=== PATIENT | female | born 1980 | race Caucasian/White ===

== ENCOUNTER 2021-03-30 04:55 | Emergency (ER) | payer OTHER ==
[~2021-03-30] VITALS: Ht 175.3 cm; Wt 81.6 kg
[2021-03-30 05:03] VITALS: BP 152/81
[2021-03-30] MEDS ORDERED: BENADRYL PO ONE (05:04)
[2021-03-30] MEDS ORDERED: SOLU-MEDROL IM STA (05:04)
[2021-03-30] MEDS ORDERED: SOLU-MEDROL ONE (05:04)
[2021-03-30] MEDS ORDERED: BENADRYL PO STA (05:04)
[2021-03-30] MEDS ORDERED: WATER 20 ML ONE (05:05)
--- NOTE | 2021-03-30 05:08 | ER.PDOC ---
General Chief Complaint: Requesting Medical Care Stated Complaint: POSS BRIANG REACTION Time seen by MD: 05:00 Source: patient Exam Limitations: no limitations History of Present Illness Initial Comments 41-year-old female presents the ER complaining of left orbital swelling status post insect bite yesterday afternoon. Patient states she was outside gardening and cooking dinner which time she felt a pinching bite on her outer eyelid. Patient went to sleep and woke up just prior to arrival and notedSwelling of her left eyelid and began to feel that her throat was beginning to get tight. Patient has had previous reactions to insect bites in the past receiving medications in the emergency department and a prescription for an EpiPen. Other than the facial swelling and the possible throat tightness she denies any other acute symptoms. Denies fevers chills. She has not taken any other medications at home to treat this. Severity: mild Associated Symptoms: facial swelling Identified Cause: yes Exposure: other (Bug bite) Allergies: Coded Allergies: codeine (Verified Allergy, Unknown, 03/30/21) Constitutional: denies no symptoms reported, denies see HPI, denies chills, denies diaphoresis, denies fever, denies malaise, denies weakness, denies other EENTM: denies no symptoms reported, denies see HPI; eye pain; denies blurred vision, denies tearing, denies double vision, denies ear pain, denies ear discharge, denies nose pain, denies nose congestion, denies throat pain; throat swelling; denies mouth pain, denies mouth swelling, denies other Respiratory: denies no symptoms reported, denies see HPI, denies cough, denies orthopnea, denies shortness of breath, denies SOB with exertion, denies SOB at rest, denies stridor, denies wheezing, denies other Cardiovascular: denies no symptoms reported, denies see HPI, denies chest pain, denies edema, denies irregular heart rate, denies lightheadedness, denies palpitations, denies syncope, denies other Gastrointestinal: denies no symptoms reported, denies see HPI, denies abdomen distended, denies abdominal pain, denies blood streaked bowels, denies constipated, denies diarrhea, denies difficulty swallowing, denies nausea, denies poor appetite, denies poor fluid intake, denies rectal bleeding, denies vomiting, denies other Genitourinary: denies no symptoms reported, denies see HPI, denies burning, denies dysuria, denies discharge, denies frequency, denies flank pain, denies hematuria, denies incontinence, denies pain, denies urgency, denies other Musculoskeletal: denies no symptoms reported, denies see HPI, denies back pain, denies gout, denies joint pain, denies joint swelling, denies muscle pain, denies muscle stiffness, denies neck pain, denies other Skin: denies no symptoms reported, denies see HPI, denies change in color, denies change in hair/nails, denies dryness, denies lesions, denies lumps, denies rash, denies other Psychiatric/Neurological: denies no symptoms reported, denies see HPI, denies anxiety, denies depressed, denies emotional problems, denies headache, denies numbness, denies paresthesia, denies pre-existing deficit, denies seizure, denies tingling, denies tremors, denies weakness, denies other Endocrine: denies no symptoms reported, denies see HPI, denies excessive sweating, denies flushing, denies intolerance to cold, denies intolerance to heat, denies increased hunger, denies increased thrist, denies increased urine, denies unexplained weight gain, denies unexplaned weight loss, denies other Hematologic/Lymphatic: denies no symptoms reported, denies see HPI, denies anemia, denies blood clots, denies easy bleeding, denies easy bruising, denies swollen glands, denies other Physical Exam General Appearance: alert, no distress HEENT: voice nml, other (Left eyelid swelling) 1 - swelling Skin: no rash, nml color Extremities: non-tender, nml ROM Neck: nml inspection Respiratory: no resp. distress, breath sounds nml CVS: reg. rate & rhythm, heart sounds nml Abdomen: non-tender, no organomegaly NEURO/PSYCH: oriented x 3, CN's nml as tested Results/Orders Results/Orders Orders - KAMLA SHEN DO Methylprednisolone Sod Succ (Solu-Medrol (03/30/21 05:04) Diphenhydramine Hcl (Benadryl) (03/30/21 05:04) Progress Progress Patient given Solu-Medrol 125 IM and Benadryl 50 mg p.o. with subsequent improvement in her symptoms. ER DEPART Departure Time of Disposition: 05:45 Disposition: 01 HOME / SELF CARE / HOMELESS Impression: Primary Impression: Allergic reaction Additional Impression: Insect bite Condition: Improved Patient Instructions: Insect Sting Allergy Referrals: KAMLA BECKETT (PCP) PRIMARY CARE PROVIDER Comments RX: Medrol dosepack Duration or Time Spent with Pa: 20 Problem Qualifiers KAMLA SHEN DO Mar 30, 2021 05:08
[2021-03-30 05:35] VITALS: BP 128/71
== END 2021-03-30 05:39 | disposition home or self-care (01) ==
LOC: ER 04:55
DX: T78.40XA Allergy, unspecified, initial encounter (principal); S00.262A Insect bite (nonvenomous) of left eyelid and periocular area, initial encounter; Z88.5 Allergy status to narcotic agent; W57.XXXA Bitten or stung by nonvenomous insect and other nonvenomous arthropods, initial encounter; Y93.89 Activity, other specified; Y92.89 Other specified places as the place of occurrence of the external cause; Y99.8 Other external cause status
CPT/HCPCS: 96372; 99283; J2930; Q0163; A4216

== ENCOUNTER 2022-10-03 20:32 | Emergency (ER) | payer SELFPAY ==
[~2022-10-03] VITALS: Ht 175.3 cm; Wt 82.6 kg
[2022-10-03 21:12] VITALS: BP 161/72
--- NOTE | 2022-10-03 21:52 | ER.PDOC ---
General Chief Complaint: Dyspnea/Respdistress Stated Complaint: ASTHMA Time seen by MD: 21:52 Source: patient Exam Limitations: no limitations History of Present Illness Initial Comments Pt has had progressive shortness of breath and some nonspecific midsternal chest pain today. Indicates she was seen in clinic and had an EKG done and got a shot of steroids for asthma, but symptoms have persisted. VSS. Timing/Duration: 24 hours (perhaps as many as 2-3 days.) Severity: moderate Initiating Event: upper respiratory illness Associated Symptoms: shortness of breath, cough Prior symptoms/Treatment: Similar symptoms previous, Recenly Seen, Treated by Doctor Allergies: Coded Allergies: codeine (Verified Allergy, Unknown, 03/30/21) Past Medical History Medical History: asthma Surgical History: , tubal Family History Significant Family History: heart disease, hypertension Social History Smoking: non-smoker (since her mid 20s ) Alcohol Use: none Drug Use: none Reviewed Nursing Reviewed: Vital Signs, Abn. Noted, Nursing Assessment Constitutional: see HPI EENTM: no symptoms reported Respiratory: SOB with exertion, SOB at rest Cardiovascular: chest pain (highly atypical) Gastrointestinal: no symptoms reported Genitourinary: no symptoms reported Musculoskeletal: no symptoms reported Skin: no symptoms reported Psychiatric/Neurological: no symptoms reported Endocrine: no symptoms reported Hematologic/Lymphatic: no symptoms reported All Other Systems: Reviewed and Negative Physical Exam General Appearance: alert Respiratory: chest non-tender, lungs clear, normal breath sounds Cardiovascular: Normal Peripheral Pulses, Regular Rate, Rhythm Abdomen: non-tender Extremities: non-tender NEURO/PSYCH: oriented x 3, CN's nml as tested, motor nml, sensation nml Results/Orders Results/Orders Vital Signs Date Time Temp Pulse Resp B/P (MAP) Pulse Ox O2 Delivery O2 Flow Rate FiO2 10/03/22 21:12 97.8 95 20 161/72 (101) 100 Room Air* 0 21 10/03/22 21:12 97.8 95 20 10/03/22 21:12 97.8 95 20 100 Progress Progress Labs largely nondiagnostic, no evidence of asthma, and cardiac workup (not high suspicion anyway) nondiagnostic. Seems a developing pneumonia. We will treat with augmentin and I have recommended pt follow up as needed. EKG/XRAY/CT/US EKG: NSR (NSR appropriate T waves good RWP no ST elevations or depressions) XRAY: chest XRAY Comments: L lung findings c/w infiltrate/pneumonia ER DEPARTURE Departure Time of Disposition: 23:47 Disposition: 01 HOME / SELF CARE / HOMELESS Impression: Primary Impression: Pneumonia Condition: Stable Patient Instructions: Pneumonia, Adult, [id number] Referrals: ÁNGEL DRAKE PA-C (PCP) PRIMARY CARE PROVIDER Additional Instructions: Medications as directed. May return to work Friday. Return if symptoms worsen. Duration or Time Spent with Pa: 15 min Justification of Admit/Observ Is this patient coming directl: No *Level of Care/Services Provid: OTHER Admit Criteria Met: NO Justification Content JUSTIFICATION FOR ADMISSION Instructions 1. Open link in [email or web address] Browser. [email or web address] 2. Copy and paste data needed to meet the Admit Criteria. 3. Modify and document the needful data to meet the Admit Criteria. MARYSE TOVAR MD Oct 03, 2022 21:52
[2022-10-03 22:15] VITALS: BP 137/76
[2022-10-03 22:16] LABS: LYMPHOCYTES # 0.47 10^3/uL1 (1.0-4.8); LYMPHOCYTES % 6.5 % (24.0-44.0); MEAN CORP HGB 29.5 pg (26-34); MONOCYTES # 0.1 10^3/uL (0.3-0.8); MONOCYTES % 0.7 % (5.0-12.0); NEUTROPHIL # 6.7 10^3/uL (1.8-7.7); NEUTROPHILS % 92.7 % (41.0-85.0); PLATELET COUNT 302 10^3/uL (150-400); RED CELL DISTRIBUTION WIDTH 12.1 % (11.5-14.5)
--- NOTE | 2022-10-03 22:17 | DIREP ---
PROCEDURE:CHEST 1 VIEW COMPARISON:None. INDICATIONS:midsternal chest pain FINDINGS: LUNGS/PLEURA:Hazy opacity in the left lung base and suspect trace left pleural fluid. No pneumothorax. VASCULATURE:Vascular congestion CARDIAC:No cardiac silhouette abnormality or cardiomegaly. MEDIASTINUM:No visible mass or adenopathy. BONES:No fracture or visible bony lesion. OTHER:Negative. CONCLUSION: 1. Vascular congestion and hazy opacity in the left lung base suspicious for infiltrate. Suspect trace left pleural fluid. Dictated by: Carolina Pearce MD on 10/03/2022 at 10:15 PM
[2022-10-03 22:46] LABS: CARBON DIOXIDE 24.9 mmol/L (20.0-32)
[2022-10-03] MEDS ORDERED: AUGMENTIN 875MG PO STA (22:55)
[2022-10-03 23:15] VITALS: BP 135/76
[2022-10-03] MEDS ORDERED: AUGMENTIN 875MG ONE (23:25)
[2022-10-03 23:44] LABS: LYMPHOCYTE 10 % (25-36); SEGMENTED NEUTROPHILS 90 % (31-76)
[2022-10-03 23:55] VITALS: BP 138/67
--- NOTE | 2022-10-04 08:19 | PCM.EKG ---
[facility] Test Date: 2022-10-03 Test Time: 22:34:30 Pat Name: LUIS GOLDEN Department: Room: Gender: F Sat Instructor: ISMAEL : 1980 Requested By: MARYSE TOVAR Order Number: [id number] Reading MD: Measurements Intervals [place] Rate: 81 P: 80 SD: 173 QRS: 59 QRSD: 86 T: 22 QT: 376 QTc: 437 Interpretive Statements Sinus rhythm JAYANT, consider biatrial enlargement RSR' in V1 or V2, right VCD or RVH No previous ECG available for comparison Please click the below link to view image of tracing.
== END 2022-10-03 23:55 | disposition home or self-care (01) ==
LOC: ER 20:32
DX: J18.9 Pneumonia, unspecified organism (principal); J45.909 Unspecified asthma, uncomplicated; Z82.49 Family history of ischemic heart disease and other diseases of the circulatory system; Z88.5 Allergy status to narcotic agent; Z98.51 Tubal ligation status; Z98.890 Other specified postprocedural states; Z20.822 Contact with and (suspected) exposure to COVID-19
CPT/HCPCS: 36415; 71045; 80053; 82550; 82553; 83880; 84484; 85025; 85379; 85610; 85730; 87426; 87804; 93005; 99285